=== PATIENT | female | born 1955 | race Asian ===

== ENCOUNTER → 2016-12-12 | Outpatient (CLI) | payer BC ==
[2016-12-12 07:58] LABS: BASOPHILS % 0.8 % (0.0-2.0); EOSINOPHILS % 2.3 % (0.0-5.0); HEMATOCRIT. 37.3 % (36.0-48.0); HEMOGLOBIN. 12.3 g/dL (12.0-16.0); LYMPHOCYTES % 41.7 % (20.0-50.0); MEAN CORPUSCULAR HEMOGLOBIN 29.2 pg (28.0-32.0); MEAN CORPUSCULAR VOLUME 88.7 fL (81.0-99.0); MEAN PLATELET VOLUME 7.8 fl (7.4-10.4); MONOCYTES % 5.9 % (2.0-8.0); NEUTROPHILS % 49.3 % (40.0-76.0); PLATELET 240 x1000/uL (130-400); RED BLOOD CELL COUNT 4.21 mill/uL (4.2-5.4); RED CELL DISTRIBUTION WIDTH 13.7 % (11.6-14.6)
[2016-12-12 13:20] LABS: GLUCOSE URINE NEGATIVE (NEGATIVE); KETONES URINE NEGATIVE (NEGATIVE); LEUKOCYTE ESTERASE URINE NEGATIVE (NEGATIVE); NITRITE URINE NEGATIVE (NEGATIVE); OCCULT BLOOD URINE 2+ (NEGATIVE); PH URINE 6.5 (4.5-8.0); PROTEIN URINE NEGATIVE (NEGATIVE); SPECIFIC GRAVITY URINE 1.004 (1.005-1.030); UROBILINOGEN URINE 0.2 E.U./dL (0.2-1.0)
[2016-12-12 13:22] LABS: CLARITY URINE CLEAR (CLEAR); COLOR URINE PALE YELLOW (YELLOW)
[2016-12-14 06:13] LABS: *CREATININE RANDOM URINE 20.2 mg/dL (Not Estab.); MICROALBUMIN RANDOM URINE 42.3 ug/mL (Not Estab.)
[2016-12-15 13:15] LABS: CARBON DIOXIDE 25 mEq/L (21-32); CHLORIDE 104 mEq/L (98-107)
== END | disposition home or self-care (01) ==
LOC: LAB 07:22
PROVIDERS: ATTEND Internal Medicine
DX: Z00.00 Encounter for general adult medical examination without abnormal findings (principal)
CPT/HCPCS: 36415; 80053; 80061; 81001; 82043; 82306; 82570; 83036; 84443; 84550; 85025; 87086

== ENCOUNTER 2019-01-06 09:54 | Inpatient (IN) | payer BC ==
[~2019-01-06] VITALS: Ht 158.8 cm; Wt 70.3 kg
[2019-01-06] MEDS ORDERED: ONDANSETRON HCL 4MG/2ML INJ IV STA (10:14)
[2019-01-06] MEDS ORDERED: MORPHINE SULFATE 4 MG/ML CPJ (NOT FOR IM USE) IV STA (10:14)
[2019-01-06] MEDS ORDERED: NITROGLYCERIN OINT 1GM/INCH UDPKT TD ONE (10:15)
[2019-01-06] MEDS ORDERED: ASPIRIN 81MG TABLET PO ONE (10:15)
[2019-01-06] MEDS ORDERED: LABETALOL 5MG/ML SYR 20 MG/4 ML SYRINGE IV ONE (10:15)
[2019-01-06] MEDS ORDERED: PANTOPRAZOLE SODIUM 40 MG/VIAL IV ONE (10:30)
[2019-01-06 10:47] LABS: CLARITY URINE CLEAR (CLEAR); COLOR URINE YELLOW (YELLOW); KETONES URINE NEGATIVE (NEGATIVE); LEUKOCYTE ESTERASE URINE NEGATIVE (NEGATIVE); NITRITE URINE NEGATIVE (NEGATIVE); OCCULT BLOOD URINE 2+ (NEGATIVE); PROTEIN URINE 1+ (NEGATIVE); SPECIFIC GRAVITY URINE 1.017 (1.005-1.030); UROBILINOGEN URINE 0.2 E.U./dL (0.2-1.0)
[2019-01-06 11:18] LABS: BASOPHILS % 0.8 % (0.0-2.0); EOSINOPHILS % 1.8 % (0.0-5.0); HEMATOCRIT. 37.5 % (36.0-48.0); HEMOGLOBIN. 12.4 g/dL (12.0-16.0); LYMPHOCYTES % 36.1 % (20.0-50.0); MEAN CORPUSCULAR HEMOGLOBIN 30.1 pg (28.0-32.0); MEAN CORPUSCULAR VOLUME 91.1 fL (81.0-99.0); MEAN PLATELET VOLUME 8.6 fl (7.4-10.4); MONOCYTES % 8.2 % (2.0-8.0); NEUTROPHILS % 53.1 % (40.0-76.0); PLATELET 232 x1000/uL (130-400); RED BLOOD CELL COUNT 4.12 mill/uL (4.2-5.4); RED CELL DISTRIBUTION WIDTH 13.5 % (11.6-14.6)
[2019-01-06 11:23] LABS: CHLORIDE 107 mEq/L (98-107)
[2019-01-06 11:25] LABS: PROTHROMBIN TIME 9.8 sec (9.6-11.0)
[2019-01-06] MEDS ORDERED: SODIUM CHLORIDE 0.9% 1,000 ML IV ONE (12:29)
[2019-01-06] MEDS ORDERED: CLONIDINE 0.1MG TABLET PO PRN (13:45)
[2019-01-06] MEDS ORDERED: REGADENOSON 0.4 MG/5 ML IV ONE (13:45)
[2019-01-06] MEDS ORDERED: HYDRALAZINE 20MG/ML VIAL IV PRN (13:45)
[2019-01-06] MEDS ORDERED: ONDANSETRON HCL 4MG/2ML INJ IV PRN (14:15)
[2019-01-06] MEDS ORDERED: ZOLPIDEM TARTRATE 5MG TABLET PO PRN (14:15)
[2019-01-06] MEDS ORDERED: ENOXAPARIN 40MG/0.4ML SYR SUBCUT SCH (14:15)
[2019-01-06] MEDS ORDERED: ACETAMINOPHEN 650MG/20.3ML UDC GT PRN (14:15)
[2019-01-06 15:00] VITALS: BP 137/73
[2019-01-06 15:30] VITALS: BP 137/73
[2019-01-06] MEDS: METOPROLOL TARTRATE 50MG TABLET PO SCH ×2 (16:57→21:00)
[2019-01-06] MEDS: LOSARTAN POTASSIUM 50 MG TABLET PO SCH ×2 (17:04→20:26)
[2019-01-06] MEDS: NITROGLYCERIN OINT 1GM/INCH UDPKT TD SCH (18:06)
[2019-01-06] MEDS: ENOXAPARIN 40MG/0.4ML SYR SUBCUT SCH (18:07)
[2019-01-06] MEDS ORDERED: CHOL100022 PO (18:35)
[2019-01-06] MEDS ORDERED: ATOR20TA65 PO (18:36)
[2019-01-06] MEDS ORDERED: MULT-1146 PO (18:37)
[2019-01-06] MEDS ORDERED: LOSA50TA3 PO (18:38)
[2019-01-06] MEDS ORDERED: ATEN-42 PO (18:38)
[2019-01-06] MEDS ORDERED: LANS30TA4 PO (18:39)
[2019-01-06] MEDS ORDERED: BIOT5TAB PO (18:40)
[2019-01-06] MEDS ORDERED: ALLO100T57 PO (18:41)
[2019-01-06 20:00] VITALS: BP 134/70
[2019-01-06] MEDS: AMLODIPINE 2.5MG TABLET PO SCH (20:26)
[2019-01-07] VITALS: BP 107/57
[2019-01-07] MEDS: NITROGLYCERIN OINT 1GM/INCH UDPKT TD SCH ×4 (00:06→18:01)
[2019-01-07] MEDS: ACETAMINOPHEN 325MG TABLET PO PRN (00:06)
[2019-01-07 00:59] LABS: CLARITY URINE CLEAR (CLEAR); COLOR URINE YELLOW (YELLOW); KETONES URINE NEGATIVE (NEGATIVE); LEUKOCYTE ESTERASE URINE TRACE (NEGATIVE); NITRITE URINE NEGATIVE (NEGATIVE); OCCULT BLOOD URINE 2+ (NEGATIVE); PH URINE 5.5 (4.5-8.0); PROTEIN URINE NEGATIVE (NEGATIVE); SPECIFIC GRAVITY URINE 1.006 (1.005-1.030); UROBILINOGEN URINE 0.2 E.U./dL (0.2-1.0)
[2019-01-07 01:36] LABS: CREATINE KINASE MB FRACTION 1.1 ng/mL (0.5-3.6)
[2019-01-07 04:00] VITALS: BP 129/79
[2019-01-07 07:21] LABS: CHLORIDE 107 mEq/L (98-107)
[2019-01-07 07:29] LABS: LDL CHOLESTEROL 50 mg/dL (5-100)
[2019-01-07 07:30] LABS: CREATINE KINASE 98 IU/L (26-192); CREATINE KINASE MB FRACTION 1.1 ng/mL (0.5-3.6)
[2019-01-07 07:31] LABS: HDL CHOLESTEROL 54 mg/dL (40-59)
[2019-01-07 07:38] LABS: BASOPHILS % 0.8 % (0.0-2.0); EOSINOPHILS % 2.9 % (0.0-5.0); HEMATOCRIT. 35.3 % (36.0-48.0); HEMOGLOBIN. 11.7 g/dL (12.0-16.0); LYMPHOCYTES % 38.9 % (20.0-50.0); MEAN CORPUSCULAR HEMOGLOBIN 30.2 pg (28.0-32.0); MEAN CORPUSCULAR VOLUME 90.7 fL (81.0-99.0); MEAN PLATELET VOLUME 8.4 fl (7.4-10.4); MONOCYTES % 7.4 % (2.0-8.0); PLATELET 215 x1000/uL (130-400); RED BLOOD CELL COUNT 3.89 mill/uL (4.2-5.4); RED CELL DISTRIBUTION WIDTH 13.4 % (11.6-14.6)
[2019-01-07 08:00] VITALS: BP 149/79
[2019-01-07] MEDS ORDERED: ASPIRIN 81MG EC TABLET PO SCH (09:00)
[2019-01-07] MEDS: AMLODIPINE 2.5MG TABLET PO SCH ×2 (09:06→21:00)
[2019-01-07] MEDS: LOSARTAN POTASSIUM 50 MG TABLET PO SCH ×2 (09:06→21:00)
[2019-01-07] MEDS: ENOXAPARIN 40MG/0.4ML SYR SUBCUT SCH ×2 (09:07→21:25)
[2019-01-07] MEDS ORDERED: PANTOPRAZOLE 40MG DR TABLET PO SCH (10:30)
[2019-01-07] MEDS: ASPIRIN 81MG EC TABLET PO SCH (11:10)
[2019-01-07] MEDS: METOPROLOL TARTRATE 50MG TABLET PO SCH ×2 (11:11→21:25)
[2019-01-07 12:00] VITALS: BP 112/64
[2019-01-07 16:00] VITALS: BP 119/67
[2019-01-07 20:00] VITALS: BP 110/66
[2019-01-07] MEDS ORDERED: ZOLPIDEM TARTRATE 5MG TABLET PO PRN (21:00)
[2019-01-08] VITALS: BP 107/61
[2019-01-08 04:00] VITALS: BP 136/63
[2019-01-08] MEDS: PANTOPRAZOLE 40MG DR TABLET PO SCH (06:51)
[2019-01-08] MEDS: NITROGLYCERIN OINT 1GM/INCH UDPKT TD SCH ×5 (06:52→23:58)
[2019-01-08 08:00] VITALS: BP 126/70
[2019-01-08] MEDS: LOSARTAN POTASSIUM 50 MG TABLET PO SCH ×2 (09:00→20:22)
[2019-01-08] MEDS: AMLODIPINE 2.5MG TABLET PO SCH ×2 (09:00→20:22)
[2019-01-08] MEDS: ASPIRIN 81MG EC TABLET PO SCH (09:27)
[2019-01-08] MEDS: METOPROLOL TARTRATE 50MG TABLET PO SCH ×2 (09:28→20:22)
[2019-01-08] MEDS: ENOXAPARIN 40MG/0.4ML SYR SUBCUT SCH ×2 (09:28→20:22)
[2019-01-08 12:00] VITALS: BP 127/63
[2019-01-08 16:00] VITALS: BP 125/63
[2019-01-08 20:00] VITALS: BP 151/83
[2019-01-09] VITALS: BP 117/68
[2019-01-09 05:00] VITALS: BP 113/69
[2019-01-09] MEDS: NITROGLYCERIN OINT 1GM/INCH UDPKT TD SCH ×2 (05:20→12:00)
[2019-01-09] MEDS: PANTOPRAZOLE 40MG DR TABLET PO SCH (05:57)
[2019-01-09 06:46] LABS: EOSINOPHILS % 2.7 % (0.0-5.0); HEMOGLOBIN. 13.6 g/dL (12.0-16.0); LYMPHOCYTES % 47.9 % (20.0-50.0); MEAN CORPUSCULAR HEMOGLOBIN 30.4 pg (28.0-32.0); MEAN CORPUSCULAR VOLUME 91.6 fL (81.0-99.0); MEAN PLATELET VOLUME 8.1 fl (7.4-10.4); MONOCYTES % 6.7 % (2.0-8.0); NEUTROPHILS % 41.7 % (40.0-76.0); PLATELET 262 x1000/uL (130-400); RED BLOOD CELL COUNT 4.48 mill/uL (4.2-5.4); RED CELL DISTRIBUTION WIDTH 13.7 % (11.6-14.6)
[2019-01-09 06:58] LABS: CHLORIDE 105 mEq/L (98-107)
[2019-01-09 08:00] VITALS: BP 122/74
[2019-01-09] MEDS: AMLODIPINE 2.5MG TABLET PO SCH (09:00)
[2019-01-09] MEDS ORDERED: REGADENOSON 0.4 MG/5 ML IV ONE (09:41)
[2019-01-09] MEDS: ASPIRIN 81MG EC TABLET PO SCH (10:56)
[2019-01-09] MEDS: ENOXAPARIN 40MG/0.4ML SYR SUBCUT SCH (10:56)
[2019-01-09] MEDS: LOSARTAN POTASSIUM 50 MG TABLET PO SCH (10:56)
[2019-01-09] MEDS: ACETAMINOPHEN 325MG TABLET PO PRN (10:56)
[2019-01-09] MEDS: METOPROLOL TARTRATE 50MG TABLET PO SCH (10:57)
[2019-01-09 12:00] VITALS: BP 111/62
[2019-01-09 18:10] VITALS: BP 111/62
== END 2019-01-09 20:13 | disposition home or self-care (01) | DRG 305 ==
LOC: ER 09:54 → 5WST 10:37 → EDBEDREQ 10:52 → EDBEDREQTM 10:52 → ENRESERV 13:42
PROVIDERS: ADMIT Internal Medicine Geriatric Medicine; ATTEND Internal Medicine Geriatric Medicine
DX: I16.0 Hypertensive urgency (principal); E78.5 Hyperlipidemia, unspecified; M10.9 Gout, unspecified; I11.9 Hypertensive heart disease without heart failure; I20.9 Angina pectoris, unspecified; R31.29 Other microscopic hematuria; E78.00 Pure hypercholesterolemia, unspecified; M79.662 Pain in left lower leg; G89.29 Other chronic pain; G62.9 Polyneuropathy, unspecified; D64.9 Anemia, unspecified; G47.00 Insomnia, unspecified; I87.8 Other specified disorders of veins; R00.1 Bradycardia, unspecified; Z82.49 Family history of ischemic heart disease and other diseases of the circulatory system; Z83.3 Family history of diabetes mellitus; Z98.51 Tubal ligation status; Z86.718 Personal history of other venous thrombosis and embolism; Z87.442 Personal history of urinary calculi; Z87.440 Personal history of urinary (tract) infections; Z88.6 Allergy status to analgesic agent; Z88.1 Allergy status to other antibiotic agents
CPT/HCPCS: 36415; 71045; 78452; 80048; 80061; 81003; 82550; 82553; 83735; 83880; 84443; 84484; 93005; 93017; 93306; 93923; 93970; 96374; 99291; A9500; C9113; J1650; J2270; J2405; J2785; J7030